=== PATIENT | female | born 1965 | race Caucasian/White ===

== ENCOUNTER 2019-01-10 17:49 | Inpatient (IN) | payer MEDICAID ==
[~2019-01-10] VITALS: Ht 160 cm; Wt 63.5 kg
--- NOTE | 2019-01-10 | NUR ---
Urine sample sent per MD order. Addendum: 01/11/19 at 0002 by Jaky Mcfarlane RN disregard note--wrong date.
[2019-01-10 18:48] LABS: Basophils # (auto) 0 uL; Basophils % (auto) 0.6 % (0.0-2.0); Eosinophils # (auto) 0.1 uL; Eosinophils % (auto) 1.9 % (0.0-7.0); Hematocrit 47.1 % (36.0-46.0); Hemoglobin 15.6 g/dL (12.2-16.2); Lymphocytes # (auto) 1.9 uL; Mean Corpuscular Hemoglobin 29.3 pg (28.0-32.0); Mean Corpuscular Hgb Conc. 33.2 g/dL (32.0-36.0); Mean Corpuscular Volume 88.4 fL (80.0-100.0); Monocytes # (auto) 0.4 uL; Neutrophils # (auto) 4.1 uL; Neutrophils % (auto) 62.5 % (37.0-80.0); Nucleated Red Blood Cells % 0.1 %; Platelet Count (auto) 233 10^3/uL (140-450); Red Blood Cells 5.33 10^6/uL (4.0-5.20); Red Cell Distribution Width 18.3 % (11.8-14.3); White Blood Cell 6.5 10^3/uL (4.4-10.8)
[2019-01-10 19:03] LABS: Albumin 3.1 g/dL (3.4-5.0); BUN/Creatinine Ratio 14.8; Calcium 8.4 mg/dL (8.5-10.1); Potassium 3.3 mmol/L (3.5-5.1)
[2019-01-10 19:08] LABS: Bilirubin, Total 0.5 mg/dL (0.2-1.0); Total Protein 6.4 g/dL (6.4-8.2)
[2019-01-10] MEDS ORDERED: ACETAMINOPHEN 325 MG TAB PO PRN (21:30)
[2019-01-10] MEDS ORDERED: ONDANSETRON HCL 4 MG/2 ML VIAL IV PRN (21:30)
[2019-01-10] MEDS ORDERED: TEMAZEPAM 15 MG CAP PO PRN (21:30)
[2019-01-10] MEDS ORDERED: NITROGLYCERIN 0.4 MG SL TAB SL PRN (21:45)
[2019-01-10] MEDS ORDERED: MORPHINE SULF INJ 2 MG/ML SYRINGE 1ML IV PRN (21:45)
[2019-01-10] MEDS: ATORVASTATIN 20 MG TAB PO SCH (22:09)
[2019-01-10] MEDS: FAMOTIDINE 20 MG TAB PO SCH (22:10)
--- NOTE | 2019-01-10 22:50 | NUR ---
Initial Assessment Patient received from ER and transferred onto ICU bed without incident. Patient is awake, alert, and oriented x4 with no s/s of distress and denies pain. HOB elevated greater than 30 degrees. RR even and unlabored with equal rise and fall on 2L o2 via N/C. HR is in the 30's (third degree heart block) but patient is completely asymptomatic-denies any SOB, chest pain, dizziness, or lightheadedness. Educated to notify RN immediately if patient becomes symptomatic. PIV x2 intact and patent with no s/s of infiltration or phlebitis noted. Patient educated about how to use the call light and encouraged to call when needing any assistance and patient verbalized understanding. Patient educated about fall precautions and not to attempt to get OOB without RN present and patient verbalized understanding. bed in lowest position, side rails up, bed brakes set, bed alarm set, fall socks/fall wrist band in place. Continue close monitoring.
[2019-01-10 23:01] VITALS: BP 164/71
--- NOTE | 2019-01-10 23:05 | NUR ---
EKG completed per MD order. Placed in chart for MD review in am.
[2019-01-10 23:30] VITALS: BP 157/64
[2019-01-10 23:34] VITALS: BP 164/71
--- NOTE | 2019-01-10 23:45 | NUR ---
Elimination Patient assisted to BS and voided 400ml of clear/yellow urine. Patient provided beni-care independently. Assisted back into bed without incident. Patient tolerated activity well with no s/s of dizziness, lightheadedness, SOB, or chest pain noted. All fall/safety precautions re-instituted.
[2019-01-10 23:58] LABS: Urine Pregnacy Test Negative (Negative)
[2019-01-11] VITALS (70 sets, daily range): BP systolic 82–153; BP diastolic 18–97
--- NOTE | 2019-01-11 | NUR ---
NPO pt NPO for pending procedure. Patient verbalized understanding.
--- NOTE | 2019-01-11 | NUR ---
Urine sample sent per MD order.
[2019-01-11 00:11] LABS: Amphetamine Screen, Urine NEGATIVE (NEGATIVE); Barbiturate Scree,Urine NEGATIVE (NEGATIVE); Benzodiazephine Screen, Urine NEGATIVE (NEGATIVE); Cannabinoid Screen, Urine NEGATIVE (NEGATIVE); Cocaine Screen, Urine NEGATIVE (NEGATIVE); Opiate Scree,Urine NEGATIVE (NEGATIVE); Phencyclidine Screen, Urine NEGATIVE (NEGATIVE)
--- NOTE | 2019-01-11 01:00 | NUR ---
Elimination Patient assisted to BSC and had soft/brown bowel movement. Patient provided beni-care independently. Assisted back into bed without incident. Patient tolerated activity well with no s/s of dizziness, lightheadedness, SOB, or chest pain noted. All fall/safety precautions re-instituted.
--- NOTE | 2019-01-11 03:15 | NUR ---
Hospitalist call Informed hospitalist of vitals. He ordered: -ok to start Dopamine gtt if needed RN performed TORB and COMMUNITY CULTURAL DEVELOPMENT OFFICER verified orders to be correct. No additional orders received.
[2019-01-11] MEDS: DOPamine 1600MCG/ML D5W 250 ML IV SCH (03:35)
--- NOTE | 2019-01-11 04:00 | NUR ---
Oxygen administration Patient's sp02 88-89% while sleeping and noted to be mouth breathing. patient placed on simple mask at 6L and sp02 increased to 92%. No SOB or accessory muscle use noted. Patient awakens easily to verbal stimuli and denies any difficulty breathing or discomfort.
[2019-01-11 04:04] LABS: Basophils # (auto) 0 uL; Basophils % (auto) 0.7 % (0.0-2.0); Eosinophils # (auto) 0.1 uL; Eosinophils % (auto) 1.5 % (0.0-7.0); Hematocrit 41.2 % (36.0-46.0); Hemoglobin 13.9 g/dL (12.2-16.2); Lymphocytes % (auto) 32.7 % (10.0-50.0); Mean Corpuscular Hgb Conc. 33.7 g/dL (32.0-36.0); Mean Corpuscular Volume 89.2 fL (80.0-100.0); Monocytes # (auto) 0.4 uL; Monocytes % (auto) 5.7 % (0.0-12.0); Neutrophils # (auto) 3.7 uL; Neutrophils % (auto) 59.4 % (37.0-80.0); Nucleated Red Blood Cells % 0.1 %; Platelet Count (auto) 205 10^3/uL (140-450); Red Blood Cells 4.62 10^6/uL (4.0-5.20); Red Cell Distribution Width 17.9 % (11.8-14.3); White Blood Cell 6.3 10^3/uL (4.4-10.8)
[2019-01-11 04:17] LABS: INR 1.04 (0.9-1.15); Partial Thromboplastin Time 25.8 sec (23.64-32.05)
[2019-01-11 04:20] LABS: BUN/Creatinine Ratio 17.8; Potassium 3.4 mmol/L (3.5-5.1)
--- NOTE | 2019-01-11 06:15 | NUR ---
Hospitalist call [facility] called and asked to have CXR read stat due to right lung on film. Informed of increased oxygen requirements and current sp02. Note that patient remains free of any SOB, accessory muscle use, or tachypnea.
--- NOTE | 2019-01-11 06:30 | NUR ---
Radiology call Informed radiologist that [facility] wants x-ray read stat. They state they will get in touch with radiology.
[2019-01-11] MEDS ORDERED: POTASSIUM CHL 20MEQ/100ML 100 ML IV ONE (07:00)
--- NOTE | 2019-01-11 07:00 | NUR ---
Report given No changes or incidents to report. No S/S of distress or pain noted. IV site intact and patent with no s/s of infiltration or phlebitis noted. Care endorsed to day shift RN.
--- NOTE | 2019-01-11 07:45 | NUR ---
ASSESS- PT. LYING IN BED AWAKE, ALERT AND ORIENTED TIMES FOUR. DENIES ANY PAIN OR DISCOMFORT. NO LIGHTHEADNESS OR DIZZYNESS. 3RD DEGREE AV BLOCK, HR-30'S WITHOUT ECTOPY. STANDBY EXTERNAL PACEMAKER, PADS ON PT., NOT ON. RADIAL PULSES STRONG, PALPABLE EMILIANO. DORSALIS PEDAL PULSES STRONG, PALPABLE EMILIANO. NO EDEMA. ON DOPAMINE GTT. AT 7 MCG. PT. MOVES ALL EXTREMITIES WITHOUT DIFFICULTY. TURNS SELF IN BED. SKIN INTACT. OXYMIZER 8L. LUNGS CLEAR EMILIANO. INSPIRATORY AND EXPIRATORY. NO SOB. PT. IS NPO FOR PPM TODAY.
[2019-01-11] MEDS: D5W/SOD CHL 0.45% 1,000 ML IV SCH ×2 (08:27→22:09)
--- NOTE | 2019-01-11 09:00 | NUR ---
PT. REMAINS IN 3RD. DEGREE HB. HR-30'S. PT. IS ASYMPTOMATIC. ON DOPAMINE GTT. AT 7 MCG.
[2019-01-11] MEDS: FAMOTIDINE 20 MG TAB PO SCH ×2 (09:39→22:09)
[2019-01-11] MEDS: ASPirin 81 mg TAB PO SCH (09:39)
[2019-01-11] MEDS: LEVOFLOXACIN 500MG 100 ML IV SCH (10:26)
--- NOTE | 2019-01-11 10:55 | NUR ---
TECH HERE FOR 2D ECHO.
--- NOTE | 2019-01-11 13:30 | NUR ---
FORM CARPENTER HERE TO PREP PT. FOR PPM TODAY. PT. IS NPO. CONSENTS SIGNED BY PT. PREVIOUSLY.
--- NOTE | 2019-01-11 14:30 | NUR ---
PT. GOING TO TAXI DRIVER FOR PPM INSERTION BY DR. AYL. VIA BED ON INNER LAYER SCRUBBER TENDER, OXYMIZER 8L. PT. IS NPO. ON DOPAMINE GTT. AT 7 MCG. HR 30'S 3RD. DEGREE AV BLOCK. PT. SIGNED CONSENT PREVIOUSLY. REPORT GIVEN TO ISIDRO BUSH AND ISIDRO PAULA.
[2019-01-11] MEDS ORDERED: MIDAZOLAM HCL 1MG/1ML-2 ML VIAL ONE (14:49)
[2019-01-11] MEDS ORDERED: fentaNYL CITRATE 100 MCG/2 ML VL ONE (14:49)
[2019-01-11] MEDS ORDERED: ceFAZolin 1GM/50ML 50 ML IV ONE (14:50)
[2019-01-11] MEDS ORDERED: LIDOCAINE 2%HCL (LOCAL ANESTH.) INJ 20ML MDV ONE ×2 (14:50→14:52)
[2019-01-11] MEDS ORDERED: VANCOMYCIN 1GM/250ML 250 ML IV ONE (14:50)
[2019-01-11] MEDS ORDERED: VANCOMYCIN HCL 1000 MG VL ONE (14:51)
--- NOTE | 2019-01-11 15:00 | NUR ---
DR. Farhad DONNELLY Provider/Hospitalist HERE. PT. IS IN THE VERTICAL BORER. GAVE UPDATE ON PT.
[2019-01-11] MEDS ORDERED: EPINEPHrine HCL 1 MG/10 ML SYRG ONE (15:02)
[2019-01-11] MEDS ORDERED: ATROPINE SULF 1 MG/10ml SYR ONE (15:02)
--- NOTE | 2019-01-11 16:00 | NUR ---
PT. RETURNED FROM PLANNING SPECIALIST WITH PERMANENT PACEMAKER LT. CHEST WITH DSG. D/I, NO SWELLING, NO BRUISING. PT. INSTRUCTED NOT TO REACH WITH LT. ARM, MOVE OR PULL ANYTHING. PT. UNDERSTANDS. ICE PACK PLACED TO LT. CHEST. PT. IS PACED AT 60 HR. SBP 120'S-130'S. DOPAMINE GTT. AT 5 MCG. WILL TITRATE TO KEEP SBP >90. PT. ALERT AND ORIENTED TIMES FOUR, DROWSY. DENIES ANY PAIN OR DISCOMFORT. CXR ORDERED, WILL DO 12 LEAD EKG ORDERED.
--- NOTE | 2019-01-11 19:00 | NUR ---
SBP 130'S-150'S. TITRATED DOPAMINE GTT. OFF. MONITORING BP.
--- NOTE | 2019-01-11 19:25 | NUR ---
IV removal IV DC'd with sterile technique, catheter fully intact. Pressure dressing applied to site. Patient tolerated procedure well. Discharged with aftercare instructions per MD. NOTE: IV RFA INFILTRATED.
--- NOTE | 2019-01-11 19:30 | NUR ---
opening assumed care of pt awake, alert, and oriented x4 with no s/s of distress and denies pain. HOB elevated greater than 30 degrees. RR even and unlabored on oxymizer at 6L o2 sat 98%. Paced on ekg monitor tech. new left chest pacer, dressing clean, dry, intact. Denies any SOB, chest pain, dizziness, or lightheadedness. Educated to notify RN if patient becomes symptomatic or needs any assistance, call light within reach and educated on use, return demonstration with RN. LAC 20g intact and patent with no s/s of infiltration or phlebitis noted. Patient educated about fall precautions and not to attempt to get up out of bed without assistance, verbalized understanding. bed in lowest locked position, in full view of nurses station. will continue to monitor
[2019-01-11] MEDS: ATORVASTATIN 20 MG TAB PO SCH (22:09)
[2019-01-12] VITALS (34 sets, daily range): BP systolic 111–162; BP diastolic 60–118
[2019-01-12] MEDS: DOPamine 1600MCG/ML D5W 250 ML IV SCH ×2 (01:16→23:02)
--- NOTE | 2019-01-12 02:09 | NUR ---
iv removal/insertion patient accidentally pulled out LAC peripheral iv. skin is clean dry intact with no symptoms or pain. removal site clean and dressed, catheter fully intact. Pressure dressing applied to site. Patient tolerated well. IV insertion IV access obtained, via clean sterile technique by inserting 20 gauge catheter at LAC after 1 attempt. IV secured properly. No trauma to site. Patient tolerated well.
[2019-01-12] MEDS: VANCOMYCIN 1GM/250ML 250 ML IV SCH ×2 (02:38→14:25)
[2019-01-12 04:27] LABS: Basophils # (auto) 0 uL; Basophils % (auto) 0.5 % (0.0-2.0); Eosinophils # (auto) 0 uL; Eosinophils % (auto) 0.9 % (0.0-7.0); Hematocrit 39.3 % (36.0-46.0); Hemoglobin 13.2 g/dL (12.2-16.2); Lymphocytes # (auto) 1.3 uL; Lymphocytes % (auto) 23.6 % (10.0-50.0); Mean Corpuscular Hemoglobin 29.9 pg (28.0-32.0); Mean Corpuscular Hgb Conc. 33.4 g/dL (32.0-36.0); Mean Corpuscular Volume 89.4 fL (80.0-100.0); Monocytes # (auto) 0.3 uL; Monocytes % (auto) 6.1 % (0.0-12.0); Neutrophils # (auto) 3.7 uL; Neutrophils % (auto) 68.9 % (37.0-80.0); Platelet Count (auto) 161 10^3/uL (140-450); Red Cell Distribution Width 17.1 % (11.8-14.3); White Blood Cell 5.4 10^3/uL (4.4-10.8)
[2019-01-12 04:44] LABS: Calcium 7.7 mg/dL (8.5-10.1); Potassium 3.3 mmol/L (3.5-5.1)
[2019-01-12 04:47] LABS: BUN/Creatinine Ratio 17.3
--- NOTE | 2019-01-12 07:30 | NUR ---
REPORT REPORT RECEIVED FROM MARLO RNAKIL. PT RESTING IN BED WITH NO DISTRESS NOTED. CONTINUE TO MONITOR.
--- NOTE | 2019-01-12 08:30 | NUR ---
ASSESSMENT PT AWAKE AND A/O X4. ABLE TO REPOSITION SELF IN BED. FOLLOWS SIMPLE COMMANDS. LUNGS CLEAR AND DIMINISHED THROUGHOUT. O2 AT 6 L/M VIA OXYMIZER WITH RR 12 AND O2 SAT OF 94%. TELE 100% PACED AT 60. PALPABLE PULSES TO ALL EXTREMITIES WITH NO EDEMA NOTED. ABD SOFT WITH HYPOACTIVE BOWEL SOUNDS. VOIDS VIA BSC. ASSISTED TO BSCS WHERE PT VOIDED 300ML PINK TINGED URINE. PT HAVING MENSES. LAST BM WAS YESTERDAY. SKIN INTACT EXCEPT FOR PACEMAKER SITE TO THE LEFT UPPER CHEST, DRESSING IS CLEAN AND DRY. TO CHAIR FROM BSC AND SERVED BREAKFAST. CONTINUE TO MONITOR.
[2019-01-12] MEDS: ASPirin 81 mg TAB PO SCH (10:03)
[2019-01-12] MEDS: FAMOTIDINE 20 MG TAB PO SCH ×2 (10:03→22:07)
[2019-01-12] MEDS: LEVOFLOXACIN 500MG 100 ML IV SCH (10:03)
--- NOTE | 2019-01-12 10:03 | NUR ---
GIVEN SCHEDULED MEDS WITH NO C/O PIAN AT THIS TIME.
[2019-01-12] MEDS: ENOXAPARIN SOD 40 MG/0.4 ML SYRINGE SC SCH (10:04)
[2019-01-12] MEDS: D5W/SOD CHL 0.45% 1,000 ML IV SCH ×2 (10:04→12:49)
--- NOTE | 2019-01-12 14:25 | NUR ---
PAIN PT C/O PAIN TO HER PACEMAKER SITE, 04/30. MEDICATED WITH TYLENOL 650 MG PO. MONITOR FOR PAIN RELIEF.
--- NOTE | 2019-01-12 14:46 | NUR ---
Assessment Pt is a 53 yr old alert and oriented female. Prior to admit, pt lives with daughter, and was independent with ADL's. Pt is in the process of getting IHSS in the home to help with cooking and cleaning. Pt does not use or own medical equipment in the home. Pt stated that when she was at a Dr's appointment, he told her to go to the hospital, pt stated that she felt fine but that they ended up putting a pacemaker in during this visit. Pt gets SSI benefits and has no interest in AD. Pt states that her sister in law will transport her home upon d/c. Further needs will be assessed closer to d/c. Addendum: 01/12/19 at 1451 by TIA ANDRE Amended: Links added.
--- NOTE | 2019-01-12 17:15 | NUR ---
MD/PHONE PAGED AND SPOKE WITH DR Sera JURADO REGARDING PT'S C/O OF PAIN AT PACEMAKER SITE THAT IS UNRELIEVED BY TYLENOL. RATED PAIN 4-5/ ORDER OBTAINED FOR NORCO 5/325 ONE TABLET PO Q 6 HOURS PRN PAIN. HE WANTS TO ME TO FOLLOW UP WITH DR ALY AND SEE WHAT HIS PLAN FOR THE PT IS.
--- NOTE | 2019-01-12 17:18 | NUR ---
CALLED AND SPOKE WITH DR ALY AND ASKED ABOUT POC PER DR Sera JURADO. HE STATED THAT THE PT CAN BE DOWNGRADED TO TELE OR DISCHARGED HOME IF OKAY WITH DR Sera JURADO. PT WILL NEED TO FOLLOW UP WITH DR ALY ONE WEEK AFTER DISCHARGE.SD
[2019-01-12] MEDS: HYDROcodone-ACET 5/325MG TAB PO PRN (17:46)
--- NOTE | 2019-01-12 17:46 | NUR ---
PAIN PT WITH C/O PAIN AT PACEMAKER INSERTION SITE TO HER LEFT UPPER CHEST. DRESSING IS CLEAN AND DRY. SHE RATES PAIN 5/10 AND MEDICATED WITH NORCO 5/325 ONE TABLET PO. MONITOR FOR PAIN RELIEF.
--- NOTE | 2019-01-12 18:15 | NUR ---
PT EATING DINNER WITH FAMILY AT THE BEDSIDE.
--- NOTE | 2019-01-12 19:15 | NUR ---
REPORT REPORT GIVEN TO AKIL SELLERS RN.
--- NOTE | 2019-01-12 19:30 | NUR ---
opening assumed care of pt awake, alert, and oriented x4 with no s/s of distress and denies pain, talking with family at bedside. HOB elevated greater than 30 degrees. RR even and unlabored on oxymizer at 2L o2 sat 94%. Paced on monitoring coordinator. Left chest pacer, dressing clean, dry, intact. Denies any SOB, chest pain, dizziness, or lightheadedness. Educated to notify RN if patient becomes symptomatic or needs any assistance, call light within reach and educated on use, return demonstration with RN. RAC 20g intact and patent with no s/s of infiltration or phlebitis noted. Patient educated about fall precautions and not to attempt to get up out of bed without assistance, verbalized understanding. bed in lowest locked position, in full view of nurses station. will continue to monitor.
--- NOTE | 2019-01-12 22:00 | NUR ---
dr. richardson at bedside
[2019-01-12] MEDS: ATORVASTATIN 20 MG TAB PO SCH (22:07)
[2019-01-12] MEDS ORDERED: ACE325T PO (22:07)
[2019-01-12] MEDS ORDERED: ASPI81CH43 PO (22:07)
[2019-01-12] MEDS ORDERED: POTA10TA79 PO (22:07)
[2019-01-12] MEDS ORDERED: ATOR20TA50 PO (22:07)
[2019-01-12] MEDS ORDERED: POTASSIUM CHL 20MEQ/100ML 100 ML IV ONE (22:15)
[2019-01-12] MEDS ORDERED: POTASSIUM CHL 20 Meq TABLET PO ONE (22:15)
--- NOTE | 2019-01-12 23:40 | NUR ---
PT TO CT VIA WHEELCHAIR ON CARDIAC ZOLL MONITOR, OXYGEN TANK, ACCOMPANIED BY 2 RNS. VSS
--- NOTE | 2019-01-12 23:55 | NUR ---
PT BACK FROM CT AND IN BED, ON ARMOR RECONNAISSANCE VEHICLE DRIVER, VSS. TOLERATED WELL. BED IN LOWEST LOCKED POSITION, CALL LIGHT WITHIN REACH, VSS.
[2019-01-13] VITALS (16 sets, daily range): BP systolic 119–143; BP diastolic 65–97
--- NOTE | 2019-01-13 00:11 | NUR ---
AMBULATION PT AMBULATED AROUND NURSES STATION AFTER RETURN FROM CT, PER DR. JURADO ORDER. PT ON SALES EFFECTIVENESS MANAGER, ROOM AIR. 02 SAT 89% UPON RETURN TO BED, PUT BACK ON OXYMIZER, O2 SAT TO 97%. VSS.
--- NOTE | 2019-01-13 00:45 | NUR ---
INCENTIVE SPIROMETER EDUCATED ON I.S. RETURN DEMONSTRATION DONE CORRECTLY BY PT. WILL USE 10X HOURLY, WHILE AWAKE.
--- NOTE | 2019-01-13 00:50 | NUR ---
Doctor Luzma explained to the pt the plan of care. Pt verbalized understanding.
--- NOTE | 2019-01-13 02:37 | NUR ---
BED BATH PT REFUSED BED BATH, CLEAN WASH CLOTHES LEFT WITH PT TO CLEAN SELF PER REQUEST.
[2019-01-13 04:28] LABS: Basophils # (auto) 0 uL; Basophils % (auto) 0.7 % (0.0-2.0); Eosinophils # (auto) 0.1 uL; Hematocrit 40.6 % (36.0-46.0); Hemoglobin 13.5 g/dL (12.2-16.2); Lymphocytes # (auto) 1.5 uL; Lymphocytes % (auto) 30.9 % (10.0-50.0); Mean Corpuscular Hemoglobin 29.7 pg (28.0-32.0); Mean Corpuscular Hgb Conc. 33.1 g/dL (32.0-36.0); Mean Corpuscular Volume 89.7 fL (80.0-100.0); Monocytes # (auto) 0.3 uL; Monocytes % (auto) 6.7 % (0.0-12.0); Neutrophils # (auto) 2.9 uL; Neutrophils % (auto) 59.7 % (37.0-80.0); Nucleated Red Blood Cells % 0.1 %; Platelet Count (auto) 172 10^3/uL (140-450); Red Blood Cells 4.53 10^6/uL (4.0-5.20); Red Cell Distribution Width 17.4 % (11.8-14.3); White Blood Cell 4.9 10^3/uL (4.4-10.8)
[2019-01-13 04:53] LABS: Potassium 4.7 mmol/L (3.5-5.1)
[2019-01-13 04:59] LABS: BUN/Creatinine Ratio 28.2; Calcium 7.9 mg/dL (8.5-10.1)
--- NOTE | 2019-01-13 07:35 | NUR ---
ASSESS- PT. LYING IN BED AWAKE, ALERT AND ORIENTED TIMES FOUR. DENIES ANY PAIN OR DISCOMFORT. PPM LT. UPPER CHEST WITH DSG. D/I, NO SWELLING, NO BRUISING. PACED 100%. LUNGS CLEAR EMILIANO. INSPIRATORY AND EXPIRATORY. OXYMIZER 2L. NO SOB. O2 SATS MID 90'S. ABD. SOFT, FLAT, NON-TENDER. NO N/V. BOWEL SOUNDS ALL FOR QUADRANTS. VOIDING VIA BSC WITHOUT DIFFICULTY. RADIAL PULSES STRONG, PALPABLE EMILIANO. DORSALIS PEDAL PULSES STRONG, PALPABLE EMILIANO. NO EDEMA. PT. IS ON MENSES.
--- NOTE | 2019-01-13 08:10 | NUR ---
DR. LOPEZ Provider/Hospitalist at bedside. GAVE UPDATE ON PT.
[2019-01-13] MEDS: ENOXAPARIN SOD 40 MG/0.4 ML SYRINGE SC SCH (09:34)
[2019-01-13] MEDS: FAMOTIDINE 20 MG TAB PO SCH ×2 (09:34→21:49)
[2019-01-13] MEDS: ASPirin 81 mg TAB PO SCH (09:35)
[2019-01-13] MEDS: LEVOFLOXACIN 500MG 100 ML IV SCH (09:35)
--- NOTE | 2019-01-13 09:35 | NUR ---
PETERSON ORTEGA IN [employer]HR LOADER FOR HM. O2-PT. MEETS CRITERIA FROM [facility]. POSSIBLE D'C HM. TODAY.
--- NOTE | 2019-01-13 09:45 | NUR ---
SHANNON FROM [facility] [employer] CALLED BACK AND GAVE INFO FROM [facility] WITH [id number]. PT. MEETS CRITERIA FOR HM. O2, POSSIBLE D'C HM. TODAY PER REPORT. NO D'C HM. ORDER YET. PT. IS GOING TO TELE NOW.
--- NOTE | 2019-01-13 10:55 | NUR ---
PT. TRANSFERRED VIA W/C TO RM. 289-B WITH O2 2L N/C ON TELE MONITOR. BELONGINGS WITH PT. FAMILY AT BS AND AWARE OF TRANSFER. REPORT GIVEN TO ISIDRO BEAN.
--- NOTE | 2019-01-13 13:00 | NUR ---
Spoke with Janet the social work instructor regarding setting up home oxygen for patient. The company being used is [employer]. She stated she would call them to initiate the home oxygen and call pts insurance for authorization.
--- NOTE | 2019-01-13 14:00 | NUR ---
Spoke with Dr. Sera Segal regarding home oxygen order. Received orders will place them and carry them out. He also stated he would like clearance from Dr. Gómez for pulmonology, will contact Dr. Gómez
--- NOTE | 2019-01-13 15:20 | NUR ---
Spoke with Janet the social services, she states she is unable to get a hold of both the patients insurance or the home oxygen supplier and the discharge will most likely be postponed
--- NOTE | 2019-01-13 15:45 | NUR ---
Spoke with Dr. Gómez regarding pulmonology clearance for patient. Dr. Gómez states he will not give clearance until home oxygen is set up.
--- NOTE | 2019-01-13 16:23 | NUR ---
Weekend utilization review nurse-I received page from nurse Galvan in ICU letting me know that this patient is being downgraded and may need home oxygen-I let her know that the order needs to be specific as to how many liters MD wants patient on-she will have MD adjust order when he comes in. I received a page from nurse Donnelly regarding home oxygen order-I let her know as well that order needs to be specific as to how many liters MD wants patient on. I asked her to fax the order, AB[facility], and H&P to at [phone]. I called [phone] and left message asking if they would be able to process this order today. No return call from -I called alternate number provided [phone] and left message for them as well. I also called [facility] [employer] Edith [phone] and left message asking for authorization for home oxygen/asking that she also send it to . I have not received return phone calls from either or Edith at [facility]-I relayed this information to nurse Donnelly.
--- NOTE | 2019-01-13 17:37 | NUR ---
Spoke with Dr. Gómez, he is requesting a cardiology consult to be placed for possible bronchoscopy for tomorrow. Will place consult and notify Dr. Sera Sarabia
--- NOTE | 2019-01-13 17:44 | NUR ---
Spoke with Dr. Sera Segal to notify of cardiology consult
--- NOTE | 2019-01-13 18:45 | NUR ---
Spoke with Dr. Cornejo and received cardio clearance for possible bronchoscopy tomorrow with Dr. Gómez
[2019-01-13] MEDS: HYDROcodone-ACET 5/325MG TAB PO PRN (20:12)
--- NOTE | 2019-01-13 20:35 | NUR ---
Pagepatty Georges for clarification of pt DC plan per family request.
[2019-01-13] MEDS: ATORVASTATIN 20 MG TAB PO SCH (21:49)
[2019-01-13] MEDS: ACETYLCYSTEINE 20%(200MG/ML) SOL 4ML NEB SCH (22:02)
[2019-01-13] MEDS: ALBUTEROL SULF 2.5 MG/0.5ML(0.5%) NEB SOLN NEB PRN (22:02)
--- NOTE | 2019-01-13 22:08 | NUR ---
RT NOTE PT WAS SEEN BY RT FOR HHN TX WITH EZPAP. PT TOLERATES WELL VIA A PAP PRESSURE OF 10. PT HAS NONPRODUCTIVE COUGH NOTED. PT FOUND ON 2L NASAL CANNULA WITH SATS AT 95%. ISIDRO ALVAREZ AT BEDSIDE. CONT ORDERED Addendum: 01/13/19 at 2210 by Ruby Villeda RT Amended: Links added.
--- NOTE | 2019-01-13 23:40 | NUR ---
Doctor Sera Segal on the bedside.
--- NOTE | 2019-01-13 23:50 | NUR ---
Doctor Luzma explained the plan of care to the patient. Pt verbalized understanding.
[2019-01-14 04:33] VITALS: BP 104/67
[2019-01-14 06:04] LABS: Calcium 8.1 mg/dL (8.5-10.1); Potassium 4.3 mmol/L (3.5-5.1)
[2019-01-14 06:06] LABS: BUN/Creatinine Ratio 21.2
[2019-01-14 06:08] LABS: Basophils # (auto) 0 uL; Basophils % (auto) 0.6 % (0.0-2.0); Eosinophils # (auto) 0.1 uL; Eosinophils % (auto) 2.1 % (0.0-7.0); Hemoglobin 13.5 g/dL (12.2-16.2); Lymphocytes # (auto) 1.8 uL; Lymphocytes % (auto) 34.2 % (10.0-50.0); Mean Corpuscular Hemoglobin 30.2 pg (28.0-32.0); Mean Corpuscular Hgb Conc. 33.7 g/dL (32.0-36.0); Mean Corpuscular Volume 89.6 fL (80.0-100.0); Monocytes # (auto) 0.3 uL; Monocytes % (auto) 6.6 % (0.0-12.0); Neutrophils # (auto) 2.9 uL; Neutrophils % (auto) 56.5 % (37.0-80.0); Nucleated Red Blood Cells % 0.1 %; Platelet Count (auto) 180 10^3/uL (140-450); Red Blood Cells 4.46 10^6/uL (4.0-5.20); Red Cell Distribution Width 17.5 % (11.8-14.3); White Blood Cell 5.2 10^3/uL (4.4-10.8)
[2019-01-14] MEDS: ALBUTEROL SULF 2.5 MG/0.5ML(0.5%) NEB SOLN NEB PRN ×3 (07:03→18:44)
[2019-01-14] MEDS: ACETYLCYSTEINE 20%(200MG/ML) SOL 4ML NEB SCH ×3 (07:03→18:44)
--- NOTE | 2019-01-14 07:03 | NUR ---
Respiratory note: MED NEB TX GIVEN VIA EZ PAP, TOLERATED WELL.
--- NOTE | 2019-01-14 07:30 | NUR ---
Opening Shift Note Assumed care of patient, awake and alert. No S/S of distress/SOB or pain. For safety bed is locked, and in the lowest position with 2 side rails up. Instructed on POC and to call for assist PRN, will continue to monitor for changes.
[2019-01-14 09:00] VITALS: BP 153/92
--- NOTE | 2019-01-14 09:45 | NUR ---
Dr. Gómez at bedside to follow up with patient regarding CT results
[2019-01-14] MEDS: FAMOTIDINE 20 MG TAB PO SCH ×2 (10:17→21:32)
[2019-01-14] MEDS: ENOXAPARIN SOD 40 MG/0.4 ML SYRINGE SC SCH (10:17)
[2019-01-14] MEDS: ASPirin 81 mg TAB PO SCH (10:17)
[2019-01-14] MEDS: LEVOFLOXACIN 500MG 100 ML IV SCH (10:17)
--- NOTE | 2019-01-14 11:20 | NUR ---
CHANGED IV FROM RIGHT AC TO A RIGHT 22G WRIST, IV IS PATENT AND ASYMPTOMATIC AT THIS TIME
[2019-01-14 13:00] VITALS: BP 122/94
--- NOTE | 2019-01-14 14:41 | NUR ---
Nutrition Assessment Est energy needs: 8980-1125 kcals (23-25 kcals/kg actual body wt) Est protein needs: 51-64 gms/day (0.8-1.0 gms/kg actual body wt) Will continue to reassess lab values, skin status and weight trends prn. Addendum: 01/14/19 at [address] Amended: Links added.
[2019-01-14 17:00] VITALS: BP 117/62
--- NOTE | 2019-01-14 19:00 | NUR ---
Opening Shift Note Assumed care of patient, awake and alert. No S/S of distress/SOB or pain. Instructed on POC and to call for assist PRN, will continue to monitor for changes Q1hr and PRN.
[2019-01-14] MEDS: HYDROcodone-ACET 5/325MG TAB PO PRN (21:32)
[2019-01-14] MEDS: ATORVASTATIN 20 MG TAB PO SCH (21:33)
[2019-01-14 21:55] VITALS: BP 119/76
[2019-01-14] MEDS ORDERED: ALB5IS NEB (22:05)
[2019-01-14] MEDS ORDERED: LEVO500T21 PO (22:05)
[2019-01-15 05:19] VITALS: BP 121/72
[2019-01-15] MEDS: ACETYLCYSTEINE 20%(200MG/ML) SOL 4ML NEB SCH ×2 (06:50→13:07)
--- NOTE | 2019-01-15 06:50 | NUR ---
SCHEDULED MN TX NOT GIVEN. PT REQUESTED TO WAIT FOR THE NEXT SCHEDULED MN TX. PT WANTED TO "SLEEP". PT ON 2L/MIN VIA NC, 96% O2 SATS, HR 64BPM, RESPIRATION IS REGULAR AND UN LABORED. NO RESPIRATORY DISTRESS NOTED. ISIDRO REYNA WAS INFORMED. WILL CONTINUE TO MOITOR PT.
--- NOTE | 2019-01-15 07:30 | NUR ---
Opening Shift Note Assumed care of patient, awake and alert. No S/S of distress/SOB or pain. Instructed on POC and to call for assist PRN, will continue to monitor for changes Q1hr and PRN. Fall precautions in place per safety protocol.
[2019-01-15 09:00] VITALS: BP 115/74
[2019-01-15] MEDS: LEVOFLOXACIN 500MG 100 ML IV SCH (10:02)
[2019-01-15] MEDS: FAMOTIDINE 20 MG TAB PO SCH (10:02)
[2019-01-15] MEDS: ASPirin 81 mg TAB PO SCH (10:02)
[2019-01-15] MEDS: ENOXAPARIN SOD 40 MG/0.4 ML SYRINGE SC SCH (10:03)
[2019-01-15 13:00] VITALS: BP 126/97
[2019-01-15] MEDS: ALBUTEROL SULF 2.5 MG/0.5ML(0.5%) NEB SOLN NEB PRN (13:07)
--- NOTE | 2019-01-15 16:32 | NUR ---
D/C Planning Per consult for home O2 2l/min and home health for safety evaluation. Contact [facility] home health Ph:) Fax:) faxed medical records. Per Nannette from [facility] patient has been accepted and service to start within 48hrs upon d/c day. Contact Ph:) Fax:) faxed medical records. Per Jaiden from referral was received during the weekend however, authorization was never received. Contact [facility] Ph:) Fax:) re-faxed orders at 10:00. Per Dave from [facility] order was being review by the RN and she would call upon being approved. Followed up call to [facility] at 13:00 and Dave informed me it has not been reviewed and said she will call me back with authorization. Dave from [facility] called at 16:32 to provide me with authorization for home health and DME. Authorization for [facility] is [id number] an for is [id number]. Followed up call to spoke to Jaiden. Informed Jaiden authorization has been created. Per Jaiden from authorization has been received and oxygen will be deliver to bedside tonight and will call RN station for ETA at ext [phone] and concentrate oxygen will be deliver to patient home. Informed ISIDRO Cifuentes. Addendum: 01/15/19 at 1651 by ANN SILVESTRE Amended: Links added.
[2019-01-15 17:00] VITALS: BP 142/77
--- NOTE | 2019-01-15 18:30 | NUR ---
MD Cornejo called Called MD Cornejo for clearance for discharge orders. Addendum: 01/15/19 at 1844 by HOUSTON GRIFFIN RN RN Awaiting call back at this time.
--- NOTE | 2019-01-15 19:15 | NUR ---
Report endorsed Patient care endorsed to Robbie FELIX.
--- NOTE | 2019-01-15 20:20 | NUR ---
Doctor Clemente cleared pt for discharge. F/U in 1 week
[2019-01-15 20:32] VITALS: BP 119/75
--- NOTE | 2019-01-15 21:25 | NUR ---
Discharge instructions given as ordered. Encourage to follow up with PMD as instructed. All questions and concerns addressed. Patient verbalized understanding. Medication reconciliation form completed and copy given to patient. Home medications held in Pharmacy returned to patient, and needed vaccines given. IV removed with catheter intact, pressure dressing applied, hartley catheter removed. Telemetry unit returned to ICU. Patient taken to vehicle via wheelchair with all personal belongings, accompanied by staff and family member. No distress noted at time of departure.
== END 2019-01-15 21:00 | disposition home health service (06) | DRG 171 ==
LOC: ER 18:06 → TELE 18:07 → ICU WEST 22:57 → TELE-WESTW 01-13 11:02
PROVIDERS: ADMIT Nurse Practitioner; ATTEND Internal Medicine
PROC: 0JH606Z Insertion of Pacemaker, Dual Chamber into Chest Subcutaneous Tissue and Fascia, Open Approach (ICD-10-PCS; principal; 2019-01-11)
PROC: 02H63JZ Insertion of Pacemaker Lead into Right Atrium, Percutaneous Approach (ICD-10-PCS; 2019-01-11)
PROC: 02HK3JZ Insertion of Pacemaker Lead into Right Ventricle, Percutaneous Approach (ICD-10-PCS; 2019-01-11)
DX: I44.2 Atrioventricular block, complete (principal); J96.01 Acute respiratory failure with hypoxia; J90 Pleural effusion, not elsewhere classified; J18.9 Pneumonia, unspecified organism; E87.0 Hyperosmolality and hypernatremia; G71.11 Myotonic muscular dystrophy; E87.6 Hypokalemia; I45.4 Nonspecific intraventricular block; F17.210 Nicotine dependence, cigarettes, uncomplicated; I51.7 Cardiomegaly; R55 Syncope and collapse; R00.1 Bradycardia, unspecified; Z98.51 Tubal ligation status; Z83.3 Family history of diabetes mellitus; Z71.6 Tobacco abuse counseling
CPT/HCPCS: 33208; 36415; 36600; 71045; 71250; 80048; 80053; 80307; 81025; 82805; 83880; 84443; 84484; 85025; 85610; 85730; 86850; 86900; 86901; 87081; 93005; 93306; 94640; 96361; 96365; 96367; G0378; J0690; J1956; J2250; J3480